=== PATIENT | male | born 1995 | race Caucasian/White ===

== ENCOUNTER 2016-12-14 18:53 | Emergency (ER) | payer OTHER ==
--- NOTE | ~2016-12-14 | CT2 ---
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 : 1995 SEX: M STUDY DATE/TIME: 12/14/2016 18:46 UNIT: SED ROOM: STUDY DESCRIPTION: CT Abd and Pelv W Cont Attending Physician: Ifeoma Foy A.P.R.N. Referring Physician: Taye Stevenson M.D. Ordering Physician: Ifeoma Foy A.P.R.N. Primary Care Physician: Lavell Browning M.D. MEDICAL IMAGING REPORT This report is preliminary unless electronic signature is present. EXAM CT abdomen and pelvis with IV contrast HISTORY Fever and diarrhea and nausea and low abdomen pain for [address] exam was performed with one or more of the following radiation dose reduction techniques: automatic control, adjustment of mA and/or kV according to patient size, and iterative reconstruction. FINDINGS CT abdomen and pelvis was performed with IV contrast. CT ABDOMEN: Diffuse fatty infiltration of the liver. No hepatic mass or biliary dilatation. The gallbladder, spleen, pancreas, right kidney, and adrenal glands are normal. 1.5 cm cyst in the upper pole of the left kidney. No bowel dilatation. There are several mildly prominent mesenteric lymph nodes, measuring up to 9 mm. These could be reactive or inflammatory, but are nonspecific. No bowel dilatation or wall thickening. No free fluid or inflammatory stranding. CT PELVIS: Normal appendix. No pelvic mass or fluid collection. Urinary bladder is decompressed. IMPRESSION 1. No acute findings in the abdomen or pelvis. 2. No bowel obstruction or urinary obstruction. 3. Normal appendix. 4. Several mildly prominent mesenteric lymph nodes could be reactive or inflammatory. 5. Fatty infiltration of the liver. 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 Shaan Henning M.D. THIS IS AN ELECTRONICALLY VERIFIED REPORT Shaan Henning M.D. at 12/14/2016 11:18 PM DFL/rnr TD: 12/14/2016 22:44 JOB #: [id number] MEDICAL IMAGING REPORT Page 1 of 1
[2016-12-14 18:19] LABS: BASOPHIL% 0.5 % (0-2.5); DIFF IND NO; EOSINOPHIL# 0.4 X10e3 (0-0.7); EOSINOPHIL% 3.6 % (0.0-7.0); HEMATOCRIT 49.9 % (38.0-50.0); HEMOGLOBIN 17.2 gm/dL (13.0-16.0); LYMPHOCYTE# 1.7 X10e3 (1.0-3.5); LYMPHOCYTE% 17.2 % (17.0-45.0); MEAN CORPUSCULAR HEMOGLOBIN 30.7 PG (28-34); MEAN CORPUSCULAR HGB CONC 34.5 g/dL (30-36); MEAN PLATELET VOLUME 7.7 FL (6.5-11.5); MONOCYTE# 1.1 X10e3 (0-1.0); MONOCYTE% 11.5 % (3.0-12.0); NEUTROPHIL# 6.6 X10e3 (1.5-7.1); NEUTROPHIL% 67.2 % (40-75); PLATELET COUNT 297 X10e3 (140-420); RED CELL DISTRIBUTION WIDTH 13.4 % (11.0-15.5); WHITE BLOOD COUNT 9.8 X10e3 (4.0-10.5)
[2016-12-14 18:37] LABS: ALBUMIN SERUM 4.9 g/dL (3.5-5.0); BILIRUBIN,TOTAL 0.1 mg/dL (0.2-2.0); CALCIUM SERUM 9.2 mg/dL (8.4-10.2); GLOM FILT RATE Estimated 106.4 mL/min (>60); POTASSIUM 3.3 mmol/L (3.5-5.1)
[2016-12-14 18:48] LABS: URINE SOURCE CLEAN CATCH
[2016-12-14 18:50] LABS: URINE APPEARANCE CLEAR; URINE BLOOD NEG (NEG); URINE COLOR YELLOW; URINE GLUCOSE NEG (NORM); URINE KETONE NEG (NEG); URINE LEUKOCYTE ESTERASE NEG (NEG); URINE NITRATE NEG (NEG); URINE PROTEIN TRACE (NEG); URINE SPECIFIC GRAVITY >=1.030 (1.003-1.035); URINE UROBILINOGEN 0.2 MG/DL (NORM)
[~2016-12-14 18:53] MED LIST: ACETAMINOPHEN PO; AUGMENTIN PO; AURALGAN EAR DR14 ML AD; BACITRACIN30 GM TOP; IBUPROFEN800 MG PO; LORATADINE; NO MEDICATIONS; RHINOCORT AQUA8.6 GM; RYNATAN PEDIAT473 ML PO; VICODIN 5/1 TAB 5/50 PO; VOLTAREN75 MG; VOLTAREN75 MG PO
[2016-12-14 18:56] LABS: MICRO INDICATED? YES; URINE BILIRUBIN NEG (NEG); URINE RBC 0-2 /[HPF] (0-2); URINE WBC 0-2 /[HPF] (0-5)
[2016-12-14 18:57] LABS: CULTURE INDICATED? NO; URINE BACTERIA NEG (NEG); URINE HYALINE CAST 0-2 /[HPF]; URINE MUCUS PRESENT; URINE SQUAMOUS EPITHELIAL CELL OCCAS /[HPF]
== END 2016-12-14 20:07 | disposition home or self-care (01) ==
LOC: SED 18:53
PROVIDERS: Nurse Practitioner Family
DX: R19.7 Diarrhea, unspecified (principal); R10.30 Lower abdominal pain, unspecified; F17.200 Nicotine dependence, unspecified, uncomplicated
CPT/HCPCS: 36415; 74177; 80053; 81003; 83690; 85025; 87045; 87427; 87493; 87899; 99284; Q9967